=== PATIENT | female | born 1955 | race Caucasian/White ===

== ENCOUNTER 2018-08-26 06:02 | Day surgery (SDC) | payer OTHER ==
[2018-08-25 11:26] VITALS: BMI 28.7
[2018-08-26] MEDS ORDERED: DESFLURANE GAS 240 ML BOTTLE IH ONE (07:20)
[2018-08-26] MEDS ORDERED: DEXMEDETOMIDINE HCL 200 MCG/2 ML IVPB ONE (07:20)
[2018-08-26] MEDS ORDERED: BUPIVACAINE HCL/PF 0.5% (5MG/ML) 10 ML VIAL ONE ×3 (07:26→07:49)
[2018-08-26] MEDS ORDERED: PROPOFOL 20 ML ONE ×2 (07:31→08:23)
[2018-08-26] MEDS ORDERED: SUCCINYLCHOLINE CHLORIDE 200 MG/10 ML VIAL ONE (07:31)
[2018-08-26] MEDS ORDERED: MIDAZOLAM HCL 2 MG/2 ML SINGLE DOSE VIAL ONE ×3 (07:31→07:40)
[2018-08-26] MEDS ORDERED: ROCURONIUM BROMIDE 50 MG/5 ML VIAL ONE (07:31)
[2018-08-26] MEDS ORDERED: ceFAZolin SODIUM 1 GM VIAL ONE (07:33)
[2018-08-26] MEDS ORDERED: SODIUM CHLORIDE 0.9% P/F 10 ML VIAL IJ ONE (07:33)
[2018-08-26] MEDS ORDERED: DEXAMETHASONE SOD PHOSPHATE 4 MG/1 ML VIAL ONE (07:33)
[2018-08-26] MEDS ORDERED: LIDOCAINE HCL/PF 2% SDV 5ML VIAL ONE (07:33)
[2018-08-26] MEDS ORDERED: KETOROLAC TROMETHAMINE 30 MG/1 ML VIAL ONE (07:33)
[2018-08-26] MEDS ORDERED: KETAMINE HCL 200 MG/20 ML VIAL ONE (07:34)
--- NOTE | 2018-08-26 08:16 | HP ---
History & Physical Update - History History: No Change - Physical Physical: No Change - Assessment Assessment: No Change - Plan Plan: No Change
[2018-08-26] MEDS ORDERED: ceFAZolin SODIUM 1 GM VIAL IVPB ONE (08:45)
[2018-08-26] MEDS ORDERED: BUPIVACAINE HCL/PF 0.5% (5MG/ML) 10 ML VIAL IJ ONE ×2 (09:03)
[2018-08-26] MEDS ORDERED: GLYCOPYRROLATE 0.2 MG/1 ML VIAL ONE (09:12)
[2018-08-26] MEDS ORDERED: NEOSTIGMINE METHYLSULFATE 0.5 MG/ML - 10 ML MDV ONE (09:14)
[2018-08-26] MEDS ORDERED: ONDANSETRON 4 MG/2 ML VIAL IVPUSH PRN (09:37)
[2018-08-26] MEDS ORDERED: LACTATED RINGERS SOLUTION 1,000 ML IV SCH (09:45)
--- NOTE | 2018-08-26 11:49 | OP ---
Operative Note - Note: Operative Date: 08/26/18 Pre-Operative Diagnosis: Recurrent incisional hernia Operation: Robotic DIEGO and incisional hernia repair with mesh Findings: dense omental adhesions and multiple incisional hernias in [place] cheese pattern Implants: Symbotex mesh 15 x 10 cm Post-Operative Diagnosis: Other (intra-abdominal adhesions) Surgeon: Homer Rachel Occupational Therapist Home Based: Kelsey Esclaona Anesthesia: General Estimated Blood Loss (mls): 5 Operative Report Dictated: Yes
--- NOTE | 2018-08-26 11:59 | SURG ---
Surgery Electron Beam Welder Note Electron Beam Welder: Kelsey Escalona PA-C Date of Service: 08/26/18 Diagnosis: recurring ventral hernia Procedure: Robotic DIEGO and incisional hernia repair with mesh I was present for the entirety of the operative procedure. For further detail, please refer to operative report. Visit type - Case Type Case Type: Scheduled - Emergency Emergency Visit: No - New patient This patient is new to me today: Yes Date on this admission: 08/26/18 - Critical Care Critical Care patient: No
--- NOTE | 2018-08-26 12:28 | OP ---
DATE OF OPERATION: 08/26/2018 PROCEDURE: Robotic-assisted lysis of adhesions and multiple incisional hernias repaired with mesh. PREOPERATIVE DIAGNOSIS: Recurrent incisional hernias. POSTOPERATIVE DIAGNOSIS: Recurrent incisional hernias and intraabdominal adhesions. SURGEON: Homer Rachel MD MOTOR COACH CHAUFFEUR: LLOYD Villalobos ANESTHESIA: General endotracheal. FINDINGS ON PROCEDURE: This is a 63-year-old female with history of ventral hernia repair in 2013 and had robotic hysterectomy in 2016. Patient was told at the time of hysterectomy to have recurrent hernias of the previous umbilical hernia repaired. CT scan of the abdomen and pelvis also showed supraumbilical fat-containing hernias. Patient complains of pain on exertion of the previous hernia repair. On physical examination, she had multiple ports that were held in a cm periumbilical scar and a slightly tender defect of the supraumbilical region, which was about 3 cm in size. So, patient was advised robotic-assisted incisional hernia repair, and consent was obtained after discussing the risks, benefits, and alternatives of the procedure. DESCRIPTION OF PROCEDURE: Patient was brought to the operating room and placed in supine position. General endotracheal anesthesia was administered. Both arms were then tucked to the sides, and a roll was placed under the patients left flank. The abdomen was prepped and draped in the usual sterile fashion. Using 0.5% Marcaine, local anesthesia was administered to the proposed incision sites. Using the old left subcostal port site, the peritoneal cavity was entered using the Veress needle, and pneumoperitoneum was established. This was followed by insertion of the 8-mm port. At the peritoneal cavity, the 3D laparoscope was inserted, and the peritoneal cavity was carefully inspected. Dense omental adhesions to the posterior abdominal wall of the hernia site were encountered. Two 8-mm ports were inserted at the left flank 15 cm away from the umbilicus, 8 cm away from each other. The 3D laparoscope was placed in the middle port, the target organ was set, and the robotic arms were docked. The EndoWrist yahaira with Monopolar cautery was inserted at the left subcostal port, and the fenestrated bipolar grasper was inserted at the left lower quadrant port. The undersigned then scrubbed out to commenced the console part of the procedure. The dense omental adhesions to the posterior abdominal wall were taken down sharply using the laparoscopic yahaira, and multiple hernias in a [place] cheese pattern were encountered, the largest one being the supraumbilical area to the right of the midline just about 3 cm in size. Another 2-cm supraumbilical hernia was identified to the left of the midline. Two smaller 1-cm hernias were noted below the umbilicus, and a small 0.5-cm incisional hernia was identified superior to the larger hernias. The falciform ligament was taken down as far superiorly to the level of the liver to provide space for the mesh. The supraumbilical hernias were closed transversely using the V-Loc No. 1 non-absorbable sutures. The infraumbilical hernias were closed vertically using the V-Loc No. 1 non-absorbable sutures. After primary closure, a 15 x 10 cm Symbotex mesh was deployed and tacked to the posterior abdominal wall covering the supraumbilical and infraumbilical defects. The anchoring of the mesh was achieved using the continuous V-Loc 2-0 absorbable sutures. After the deployment was deemed satisfactory, the peritoneal cavity was carefully inspected and was noted to be free of inadvertent injury and abnormal fluid. All the instruments were removed, and robotic arms were undocked. The pneumoperitoneum was evacuated and the ports were removed. The wounds were closed with subcuticular Biosyn 4-0 sutures and reinforced with Dermabond. Abdominal binder was applied. Patient was successfully extubated and transferred to the post-anesthesia care unit in satisfactory condition. ESTIMATED BLOOD LOSS: About 5 mL. WOUND CLASS: Clean. The patient received 2 g of Ancef prior to the start of the procedure. Mikey [id number]
[2018-08-26] MEDS ORDERED: diphenhydrAMINE HCL 25 MG CAPSULE (FP) PO ONE ×3 (13:48→13:55)
[2018-08-26 15:34] VITALS: BP 114/73; PULSE 72; TEMP 97.4
== END 2018-08-26 15:38 | disposition home or self-care (01) ==
LOC: JASU-SURG 06:02
PROVIDERS: ATTEND Surgery
PROC: 8E0W4CZ Robotic Assisted Procedure of Trunk Region, Percutaneous Endoscopic Approach (ICD-10-PCS; 2018-08-26)
PROC: 0WUF4JZ Supplement Abdominal Wall with Synthetic Substitute, Percutaneous Endoscopic Approach (ICD-10-PCS; principal; 2018-08-26 08:00)
DX: K43.2 Incisional hernia without obstruction or gangrene (principal); K66.0 Peritoneal adhesions (postprocedural) (postinfection)
CPT/HCPCS: 49656; S2900; 94760

== ENCOUNTER 2024-03-15 19:18 | Emergency (ER) | payer OTHER ==
[2024-03-15 19:27] VITALS: BP 134/75; PULSE 78; RESP 20; TEMP 98.3; BMI 23.8
[2024-03-15] MEDS ORDERED: MECLIZINE HCL 25 MG TABLET (FP) ONE (20:15)
[2024-03-15] MEDS: MECLIZINE HCL 25 MG TABLET (FP) PO ONE (20:25)
== END 2024-03-15 23:00 | disposition home or self-care (01) ==
LOC: JER 19:18
DX: R42 Dizziness and giddiness (principal); R09.81 Nasal congestion; R11.0 Nausea
CPT/HCPCS: 70450-TC; 82962; 93005; 93010; 99285-25